=== PATIENT | female | born 1945 | race Caucasian/White ===

== ENCOUNTER → 2019-12-04 | Outpatient (REF) | payer BC, MEDICARE | LOC: M LAB REF 17:03 | PROVIDERS: ATTEND Physician Assistant | DX: N39.0 Urinary tract infection, site not specified (principal) ==

== ENCOUNTER 2020-12-02 20:02 | Emergency (ER) | payer MEDICARE ==
[~2020-12-02] VITALS: Ht 170.2 cm; Wt 85.9 kg
[2020-12-02 20:02] VITALS: BP 142/63
[2020-12-02] MEDS ORDERED: PANT40TA29 (20:31)
[2020-12-02] MEDS ORDERED: DILT120C89 (20:31)
[2020-12-02] MEDS ORDERED: LOSA50TA88 (20:31)
[2020-12-02] MEDS ORDERED: EZET10TA21 (20:31)
[2020-12-02] MEDS ORDERED: LEVO88TA3 (20:31)
[2020-12-02] MEDS ORDERED: ROSU5TAB5 (20:31)
[2020-12-02] MEDS ORDERED: ASPI81CH33 PO (20:31)
== END 2020-12-02 22:16 | disposition left against medical advice (07) ==
LOC: M ED 20:02
DX: Z53.21 Procedure and treatment not carried out due to patient leaving prior to being seen by health care provider (principal)